=== PATIENT | male | born 1980 | race African-American/Black ===

== ENCOUNTER 2017-07-20 18:44 | Emergency (ER) | payer SELFPAY | END 2017-07-20 20:22 | disposition home or self-care (01) | LOC: MADERS 18:44 | DX: S51.011A Laceration without foreign body of right elbow, initial encounter (principal); F17.210 Nicotine dependence, cigarettes, uncomplicated; W25.XXXA Contact with sharp glass, initial encounter | CPT/HCPCS: 99282 ==

== ENCOUNTER 2020-12-22 09:04 | Emergency (ER) | payer SELFPAY | END 2020-12-22 09:35 | disposition home or self-care (01) | LOC: MADERS 09:04 | DX: Z20.2 Contact with and (suspected) exposure to infections with a predominantly sexual mode of transmission (principal); F17.210 Nicotine dependence, cigarettes, uncomplicated | CPT/HCPCS: 99281 ==

== ENCOUNTER 2021-01-05 11:28 | Emergency (ER) | payer SELFPAY ==
[2021-01-05] MEDS ORDERED: Cefepime 2 GM VIAL ONE (12:09)
[2021-01-05] MEDS ORDERED: Vancomycin HCl 500 MG VIAL ONE (12:09)
[2021-01-05] MEDS ORDERED: Vancomycin HCl 750 MG VIAL ONE (12:09)
[2021-01-05] MEDS ORDERED: Sodium Chloride 0.9% 250 ML 250 ML ONE (12:10)
[2021-01-05] MEDS ORDERED: Sodium Chloride 0.9% 100 ML ONE (12:10)
[2021-01-05 12:30] LABS: ALT (SGPT) 44 U/L (8-55); AST (SGOT) 41 U/L (5-34); Albumin 3.5 g/dL (3.5-5.0); Alkaline Phosphatase 102 U/L (40-110); Anion Gap 15 mmol/L (10-20); BUN (Urea Nitrogen) 14 mg/dL (8.9-20.6); Calc. Creatinine Clearance 0 mL/min (70-130); Calcium 8.5 mg/dL (7.8-10.44); Carbon Dioxide 24 mmol/L (22-29); Chloride 100 mmol/L (98-107); Globulin 3.8 g/dL (2.4-3.5); Glucose 128 mg/dL (70-105); Potassium 3.7 mmol/L (3.5-5.1); Protein, Total 7.3 g/dL (6.0-8.3); Sodium 135 mmol/L (136-145)
[2021-01-05 12:32] LABS: Hemoglobin 14.4 g/dL (14.0-18.0); Mean Corpuscular HGB CONC 31.8 g/dL (32.0-36.0); Mean Corpuscular Hemoglobin 27.2 pg (27.0-31.0); Mean Corpuscular Volume 85.6 fL (78.0-98.0); Mean Platelet Volume 9.4 fL (7.4-10.4); Platelet Count 187 thou/uL (130-400); RBC Distribution Width 13.9 % (11.5-14.5); White Blood Cell (WBC) Count 15.8 thou/uL (4.8-10.8)
[2021-01-05 12:39] LABS: Band 23 % (5-11); Lymphocytes 1 % (21-51); MDiff Complete? YES; Monocytes 10 % (0-10); Neutrophil 66 % (42-75); Platelet Morphology Comment Appears Adequate
[2021-01-05] MEDS ORDERED: Sodium Chloride 0.9% 2,000 ML ONE (12:53)
[2021-01-05] MEDS ORDERED: Ibuprofen 600 MG TAB ONE (13:01)
== END 2021-01-05 14:35 | disposition home or self-care (01) ==
LOC: MADERS 11:28
DX: L03.113 Cellulitis of right upper limb (principal); F17.210 Nicotine dependence, cigarettes, uncomplicated
CPT/HCPCS: 80053; 83605; 85025; 87040; 96365; 96367; J0692; J3370; J3490; J7050

== ENCOUNTER 2022-06-23 11:25 | Emergency (ER) | payer SELFPAY ==
[2022-06-23] MEDS ORDERED: Ibuprofen 800 MG TAB ONE (12:16)
== END 2022-06-23 12:47 | disposition home or self-care (01) ==
LOC: MADERS 11:25
DX: R07.2 Precordial pain (principal); R05.9 Cough, unspecified; F17.210 Nicotine dependence, cigarettes, uncomplicated
CPT/HCPCS: 71046; 93005

== ENCOUNTER 2024-08-11 10:06 | Emergency (ER) | payer SELFPAY ==
[2024-08-11] MEDS ORDERED: Ketorolac Tromethamine 30 MG (1 mL) VIAL ONE (10:35)
[2024-08-11] MEDS ORDERED: Sodium Chloride 0.9% 1,000 ML ONE (10:35)
[2024-08-11] MEDS ORDERED: Ondansetron PF 4 MG/2 ML Vial ONE (10:35)
[2024-08-11 10:53] LABS: Hematocrit 45.8 % (42.0-52.0); Hemoglobin 14.1 g/dL (14.0-18.0); Mean Corpuscular HGB CONC 30.7 g/dL (32.0-36.0); Mean Corpuscular Hemoglobin 27.2 pg (27.0-31.0); Mean Corpuscular Volume 88.5 fl (78.0-98.0); Mean Platelet Volume 8.7 fL (7.4-10.4); Platelet Count 238 10x3/uL (130-400); RBC Distribution Width 13.8 % (11.5-14.5); Red Blood Cell (RBC) Count 5.18 mill/uL (4.70-6.10)
[2024-08-11 11:01] LABS: ALT (SGPT) 25 U/L (8-55); AST (SGOT) 23 U/L (5-34); Albumin 3.8 g/dL (3.5-5.0); Alkaline Phosphatase 107 U/L (40-110); Anion Gap 11 mmol/L (10-20); BUN (Urea Nitrogen) 13 mg/dL (8.9-20.6); Calc. Creatinine Clearance 0 mL/min (70-130); Calcium 8.9 mg/dL (7.8-10.44); Carbon Dioxide 25 mmol/L (22-29); Chloride 106 mmol/L (98-107); Estimated GFR 102; Globulin 3.6 g/dL (2.4-3.5); Glucose 93 mg/dL (70-105); Potassium 3.7 mmol/L (3.5-5.1); Protein, Total 7.4 g/dL (6.0-8.3); Sodium 138 mmol/L (136-145)
[2024-08-11 11:05] LABS: Lymphocytes 35 % (21-51); MDiff Complete? YES; Manual Diff?? YES; Neutrophil 50 % (42-75)
[2024-08-11 11:06] LABS: Anisocytosis SLIGHT = 6-15 cells (100X) (0-5/hpf); Eosinophils 2 % (0-10); Hypochromia SLIGHT = 6-15 cells (100X) (0-5/hpf); Monocytes 5 % (0-10); Platelet Adequacy Comment Appears Adequate; Poikilocytosis SLIGHT = 6-15 cells (100X) (0-5/hpf); Reactive Lymphocytes 8 % (0-10)
== END 2024-08-11 11:14 | disposition home or self-care (01) ==
LOC: MADERS 10:06
DX: R19.7 Diarrhea, unspecified (principal); R11.10 Vomiting, unspecified; F17.210 Nicotine dependence, cigarettes, uncomplicated
CPT/HCPCS: 80053; 85025; 96361; 96374; 96375; J1885; J2405; J7030

== ENCOUNTER 2024-09-04 18:07 | Emergency (ER) | payer SELFPAY | END 2024-09-04 19:39 | disposition home or self-care (01) | LOC: MADERS 18:07 | DX: Z20.2 Contact with and (suspected) exposure to infections with a predominantly sexual mode of transmission (principal); F17.210 Nicotine dependence, cigarettes, uncomplicated | CPT/HCPCS: 99283 ==

== ENCOUNTER 2024-09-16 22:45 | Emergency (ER) | payer SELFPAY ==
[2024-09-16] MEDS ORDERED: cefTRIAXone (ROCEPHIN) 1 GM VIAL ONE (23:43)
[2024-09-16] MEDS ORDERED: traMADol HCl 50 MG TAB ONE (23:43)
[2024-09-16] MEDS ORDERED: Azithromycin 250 MG TAB ONE (23:43)
[2024-09-16] MEDS ORDERED: Lidocaine 1% PF 5 ML VIAL ONE (23:43)
[2024-09-16] MEDS ORDERED: Phenazopyridine HCl 95 MG TAB ONE (23:43)
[2024-09-24 12:26] LABS: Bacteria/HPF Rare-Few HPF (None Seen); Bilirubin Negative (Negative); Blood, Urine Negative (Negative); Clarity Clear (Clear); Glucose, Urine (Dipstick) Negative (Negative); Ketone, Urine Negative (Negative); Leukocyte Negative (Negative); Nitrite Negative (Negative); Protein, Urine (Dipstick) 30 mg/dL (Neg-Trace); Specific Gravity, Urine 1.025 (1.005-1.030); Squamous Epithelial 0-3 HPF (0-3); WBC/HPF 0-3 HPF (0-3)
[2024-09-24 13:49] LABS: Chlam.trachomatis by PCR,Urine Not Detected (NotDetected); GC N.gonorrhoeae PCR,UrineVOID Not Detected (NotDetected)
== END 2024-09-17 00:32 | disposition home or self-care (01) ==
LOC: MADERS 22:45
DX: R30.0 Dysuria (principal)
CPT/HCPCS: 81001; 87086; 87491; 87591; 96374; J0696

== ENCOUNTER 2024-11-10 08:34 | Emergency (ER) | payer OTHER, SELFPAY ==
[2024-11-10] MEDS ORDERED: Acetaminophen 500 MG TAB ONE (09:56)
== END 2024-11-10 11:11 | disposition home or self-care (01) ==
LOC: MADERS 08:34
DX: B34.9 Viral infection, unspecified (principal); F17.290 Nicotine dependence, other tobacco product, uncomplicated; F17.210 Nicotine dependence, cigarettes, uncomplicated
CPT/HCPCS: 87428; 99284

== ENCOUNTER 2024-12-12 04:37 | Emergency (ER) | payer OTHER, SELFPAY ==
[2024-12-12] MEDS ORDERED: Ketorolac Tromethamine 60 MG/2 ML VIAL ONE (05:12)
[2024-12-12 05:43] LABS: Bilirubin Negative (Negative); Blood, Urine Small (Negative); Clarity Clear (Clear); Glucose, Urine (Dipstick) Negative (Negative); Ketone, Urine Negative (Negative); Leukocyte Negative (Negative); Nitrite Negative (Negative); Protein, Urine (Dipstick) Trace mg/dL (Neg-Trace); Specific Gravity, Urine 1.025 (1.005-1.030)
[2024-12-12 05:48] LABS: CAUTI Indications for Culture Dysuria,urgency,freq; Squamous Epithelial 0-3 HPF (0-3); WBC/HPF 0-3 HPF (0-3)
[2024-12-12 05:49] LABS: Urine Culture Reflex No No
[2024-12-12] MEDS ORDERED: Doxycycline 100 MG CAP ONE (05:55)
[2024-12-13 08:33] LABS: Chlam.trachomatis by PCR,Urine Not Detected (NotDetected); GC N.gonorrhoeae PCR,UrineVOID Not Detected (NotDetected)
== END 2024-12-12 06:15 | disposition home or self-care (01) ==
LOC: MADERS 04:37
DX: R30.0 Dysuria (principal); F17.290 Nicotine dependence, other tobacco product, uncomplicated; F17.210 Nicotine dependence, cigarettes, uncomplicated
CPT/HCPCS: 74176; 81001; 87491; 87591; 96372; J1885

== ENCOUNTER 2025-07-10 03:48 | Emergency (ER) | payer OTHER, SELFPAY ==
[2025-07-10 04:22] LABS: Hematocrit 42.5 % (42.0-52.0); Hemoglobin 13.7 g/dL (14.0-18.0); Mean Corpuscular Hemoglobin 27.8 pg (27.0-31.0); Mean Corpuscular Volume 86.0 fl (78.0-98.0); Platelet Count 231 10x3/uL (130-400); Red Blood Cell (RBC) Count 4.95 mill/uL (4.70-6.10); White Blood Cell (WBC) Count 5.1 10x3/uL (4.8-10.8)
[2025-07-10 04:24] LABS: MDiff Complete? YES
[2025-07-10] MEDS ORDERED: Ketorolac Tromethamine 30 MG (1 mL) VIAL ONE (04:25)
[2025-07-10 04:31] LABS: CAUTI Indications for Culture Pelvic or flank pain; Glucose, Urine (Dipstick) Negative (Negative); Leukocyte Negative (Negative); Mucous/LPF 3+ LPF (<2+); Protein, Urine (Dipstick) 30 mg/dL (Neg-Trace); RBC/HPF None Seen HPF (0-3); Specific Gravity, Urine Greater/Equal 1.030 (1.005-1.030); WBC/HPF 0-3 HPF (0-3)
[2025-07-10 04:32] LABS: Urine Culture Reflex No No
[2025-07-10 04:41] LABS: ALT (SGPT) 17 U/L (Less than 45); AST (SGOT) 22 U/L (11-34); Albumin 3.9 g/dL (3.1-4.5); Alkaline Phosphatase 92 U/L (40-110); Anion Gap 15 mmol/L (10-20); BUN (Urea Nitrogen) 15 mg/dL (8.9-20.6); Bilirubin, Total 0.6 mg/dL (0.3-1.2); Calc. Creatinine Clearance 0 mL/min (70-130); Calcium 8.5 mg/dL (7.8-10.44); Carbon Dioxide 26 mmol/L (22-29); Chloride 103 mmol/L (98-107); Globulin 3.1 g/dL (2.4-3.5); Glucose 119 mg/dL (70-105); Lipase 9 U/L (8-78); Potassium 3.5 mmol/L (3.5-5.1); Sodium 140 mmol/L (136-145)
[2025-07-10] MEDS ORDERED: Cephalexin 500 MG CAP ONE (05:16)
== END 2025-07-10 05:28 | disposition home or self-care (01) ==
LOC: MADERS 03:48
DX: R10.32 Left lower quadrant pain (principal); R93.422 Abnormal radiologic findings on diagnostic imaging of left kidney; F17.210 Nicotine dependence, cigarettes, uncomplicated; F17.290 Nicotine dependence, other tobacco product, uncomplicated
CPT/HCPCS: 74177; 80053; 81001; 83690; 85025; 87086; 96374; 96375; J1885; J2270; J7030